=== PATIENT | male | born 1990 | race Two or more races ===

== ENCOUNTER 2024-11-10 15:55 | Emergency (ER) | payer OTHER ==
[~2024-11-10] VITALS: Ht 170.2 cm; Wt 74.8 kg
[2024-11-10] MEDS ORDERED: INDAPAMIDE2.5 MG (17:15)
[2024-11-10] MEDS ORDERED: PERINDOPRIL ERBU8 MG (17:15)
[2024-11-10] MEDS ORDERED: TENOFOVIR DISO300 MG (17:16)
== END 2024-11-10 18:59 | disposition home or self-care (01) ==
LOC: ER 15:55
DX: S68.125A Partial traumatic metacarpophalangeal amputation of left ring finger, initial encounter (principal); W45.8XXA Other foreign body or object entering through skin, initial encounter; Y93.89 Activity, other specified; Y92.89 Other specified places as the place of occurrence of the external cause; Y99.9 Unspecified external cause status; I10 Essential (primary) hypertension; Z88.8 Allergy status to other drugs, medicaments and biological substances